=== PATIENT | female | born 1985 | race Two or more races ===

== ENCOUNTER 2020-10-01 23:47 | Emergency (ER) | payer SELFPAY ==
[~2020-10-01] VITALS: Ht 165.1 cm; Wt 63.5 kg
[2020-10-01 23:47] VITALS: BP 107/67
== END 2020-10-02 00:59 | disposition left against medical advice (07) ==
LOC: ER 23:50
DX: R10.9 Unspecified abdominal pain (principal); Z53.21 Procedure and treatment not carried out due to patient leaving prior to being seen by health care provider

== ENCOUNTER 2023-05-07 21:55 | Inpatient (IN) | payer MEDICAID ==
[~2023-05-07] VITALS: Ht 165.1 cm; Wt 85.0 kg
[2023-05-07] MEDS ORDERED: MORPHINE SULFATE 4 MG/ML SYR/VIAL IM ONE (22:15)
[2023-05-07 22:34] LABS: Urine Epithelial Cast None Seen /hpf (<5)
[2023-05-07 22:44] LABS: Alanine Aminotransferase 15 U/L (7-40); Alkaline Phosphatase 72 U/L (46-116); Anion Gap 7 (5-15); Aspartate Aminotransferase 12 U/L (13-40); BUN/Creatinine Ratio 8.4 (10.0-20.0); Blood Urea Nitrogen 7 mg/dL (9-23); Carbon Dioxide 23 mmol/L (20-30); Chloride 109 mmol/L (98-107); Glucose 96 mg/dL (74-106); Lipase 31 U/L (12-53); Potassium 3.9 mmol/L (3.5-5.1); Sodium 139 mmol/L (136-145)
[2023-05-07 22:45] LABS: Albumin 4.5 g/dL (3.2-4.8); Bilirubin, Total 0.5 mg/dL (0.2-1.0); Total Protein 7.6 g/dL (5.7-8.2)
[2023-05-07 22:49] LABS: Urine Bacteria NONE SEEN /hpf (None Seen); Urine Blood 3+ /uL (Negative); Urine Clarity Clear (Clear); Urine Color Colorless (Yellow); Urine Protein, UAD Negative (Negative); Urine Specific Gravity 1.008 (1.001-1.035); Urine Urobilinogen Normal (Negative); Urine WBC 7 /hpf (0 - 5)
[2023-05-07 23:38] LABS: Basophils # (auto) 0 10 ^3/uL (0-0.2); Basophils % (auto) 0.4 % (0.0-2.0); Eosinophils # (auto) 0.1 10 ^3/uL (0-0.8); Eosinophils % (auto) 0.6 % (0.0-7.0); Hemoglobin 7.9 g/dL (12.2-16.2); Lymphocytes # (auto) 1.7 10 ^3/uL (0.4-5.4); Mean Corpuscular Volume 61.3 fL (80.0-100.0); Monocytes # (auto) 0.7 10 ^3/uL (0-1.3)
[2023-05-07 23:39] LABS: Hematocrit 27.5 % (36.0-46.0); Lymphocytes % (auto) 15.6 % (10.0-50.0); Mean Corpuscular Hemoglobin 17.6 pg (28.0-32.0); Mean Corpuscular Hgb Conc. 28.6 g/dL (32.0-36.0); Neutrophils # (auto) 8.5 10 ^3/uL (1.6-8.6); Neutrophils % (auto) 77.4 % (37.0-80.0); Red Blood Cells 4.49 10^6/uL (4.0-5.20); Red Cell Distribution Width 18.9 % (11.8-14.3)
[2023-05-07] MEDS ORDERED: ONDANSETRON HCL 4 MG/2 ML VIAL IV ONE (23:45)
[2023-05-07] MEDS ORDERED: MORPHINE SULFATE 4 MG/ML SYR/VIAL IV ONE (23:45)
[2023-05-07 23:52] VITALS: PULSE 113; RESP 20; O2SAT 99
[2023-05-08 00:03] LABS: Platelet Estimate Adequate
[2023-05-08 00:04] LABS: Hypochromia Marked; Ovalocytes FEW
[2023-05-08] MEDS ORDERED: MORPHINE SULFATE 4 MG/ML SYR/VIAL IV ONE (00:45)
[2023-05-08] MEDS ORDERED: MORPHINE SULFATE INJ 2 MG/ml SYRG IV PRN (05:00)
[2023-05-08] MEDS ORDERED: ONDANSETRON HCL 4 MG/2 ML VIAL IV PRN (05:00)
[2023-05-08] MEDS ORDERED: ACETAMINOPHEN 325 MG TAB PO PRN (05:00)
[2023-05-08 05:53] LABS: Hemoglobin 7.8 g/dL (12.2-16.2)
[2023-05-08 05:58] LABS: % Iron Saturation 5.6 % (15-50)
[2023-05-08] MEDS: cefTRIAXone 1GM/50ML D5W 50 ML IV SCH (06:14)
[2023-05-08] MEDS: HYDROcodone-ACET 5/325MG TAB PO PRN ×2 (10:31→19:02)
[2023-05-08] MEDS ORDERED: PANTOPRAZOLE 40 MG/10 ML VIAL INJ IV ONE (13:45)
[2023-05-08] MEDS: metroNIDAZOLE 500MG/100ML 100 ML IV SCH ×2 (14:16→21:38)
[2023-05-08] MEDS ORDERED: diphenhdrAMINE HCL 50 MG/1 ML VL ONE (16:39)
[2023-05-08] MEDS ORDERED: LIDOCAINE VISCOUS 2% 15ML UD ONE (16:39)
[2023-05-08] MEDS ORDERED: SODIUM CHLORIDE LOCK 10 ML ONE (16:39)
[2023-05-08] MEDS ORDERED: MIDAZOLAM HCL 5 MG/ML-1ML VIAL ONE (16:39)
[2023-05-08] MEDS ORDERED: fentaNYL CITRATE 100 MCG/2 ML VL ONE (16:40)
[2023-05-08 17:05] VITALS: O2SAT 96
[2023-05-08 17:17] VITALS: O2SAT 99
[2023-05-08] MEDS: SUCRALFATE 1 GM/10 ML ORAL SUSP PO SCH (21:36)
[2023-05-08 22:00] VITALS: BP 106/58; PULSE 86; RESP 19; TEMP 98.5; O2SAT 100
[2023-05-09] MEDS: HYDROcodone-ACET 5/325MG TAB PO PRN ×3 (04:27→14:58)
[2023-05-09] MEDS: metroNIDAZOLE 500MG/100ML 100 ML IV SCH ×2 (05:59→14:00)
[2023-05-09] MEDS: PANTOPRAZOLE 40 MG/10 ML VIAL INJ IV SCH ×2 (06:09→17:00)
[2023-05-09] MEDS: SUCRALFATE 1 GM/10 ML ORAL SUSP PO SCH ×3 (06:09→17:00)
[2023-05-09 06:36] LABS: Basophils # (auto) 0 10 ^3/uL (0-0.2); Eosinophils # (auto) 0.1 10 ^3/uL (0-0.8); Hemoglobin 7.3 g/dL (12.2-16.2); Lymphocytes # (auto) 1.5 10 ^3/uL (0.4-5.4); Mean Corpuscular Hemoglobin 17.4 pg (28.0-32.0); Mean Corpuscular Hgb Conc. 28.7 g/dL (32.0-36.0); Mean Corpuscular Volume 60.7 fL (80.0-100.0); Monocytes # (auto) 0.5 10 ^3/uL (0-1.3); Neutrophils # (auto) 2.6 10 ^3/uL (1.6-8.6); Red Blood Cells 4.18 10^6/uL (4.0-5.20)
[2023-05-09 06:38] LABS: Basophils % (auto) 0.9 % (0.0-2.0); Eosinophils % (auto) 2.7 % (0.0-7.0); Hematocrit 25.3 % (36.0-46.0); Lymphocytes % (auto) 31.8 % (10.0-50.0); Monocytes % (auto) 10.7 % (0.0-12.0); Neutrophils % (auto) 53.9 % (37.0-80.0); Nucleated Red Blood Cells % 0.1 %; White Blood Cell 4.8 10^3/uL (4.4-10.8)
[2023-05-09 06:52] LABS: Alanine Aminotransferase 15 U/L (7-40); Alkaline Phosphatase 69 U/L (46-116); Anion Gap 7 (5-15); BUN/Creatinine Ratio 8.1 (10.0-20.0); Blood Urea Nitrogen 6 mg/dL (9-23); Carbon Dioxide 23 mmol/L (20-30); Chloride 110 mmol/L (98-107); Glucose 86 mg/dL (74-106); Sodium 140 mmol/L (136-145)
[2023-05-09 06:53] LABS: Aspartate Aminotransferase 13 U/L (13-40); Bilirubin, Total 0.4 mg/dL (0.2-1.0); Total Protein 6.7 g/dL (5.7-8.2)
[2023-05-09 08:00] VITALS: BP 96/60; PULSE 74; RESP 18; TEMP 98.4; O2SAT 98
[2023-05-09 08:35] VITALS: BP 93/51; PULSE 74; RESP 16; TEMP 98; O2SAT 97
[2023-05-09] MEDS ORDERED: PANTOPRAZOLE 40 MG/10 ML VIAL INJ IV SCH (10:00)
[2023-05-09] MEDS: cefTRIAXone 1GM/50ML D5W 50 ML IV SCH (10:26)
[2023-05-09] MEDS ORDERED: SUCR1TAB22 OR (11:24)
[2023-05-09] MEDS ORDERED: PANT40T PO (11:24)
[2023-05-09] MEDS ORDERED: LEVO500T91 PO (11:26)
[2023-05-09 12:35] VITALS: BP 96/60; PULSE 74; RESP 18; TEMP 98.4; O2SAT 98
[2023-05-09 16:35] VITALS: BP 100/53; PULSE 87; RESP 16; TEMP 98.4; O2SAT 98
[2023-05-09 17:42] VITALS: BP 100/53; PULSE 87; RESP 16; TEMP 98.4; O2SAT 98
== END 2023-05-09 18:41 | disposition home or self-care (01) | DRG 392 ==
LOC: ER 21:55 → OVERFLOW 05-08 04:53 → WEST WING 05-08 18:02
PROVIDERS: ADMIT Nurse Practitioner; ATTEND Family Medicine
PROC: 0DB68ZX Excision of Stomach, Via Natural or Artificial Opening Endoscopic, Diagnostic (ICD-10-PCS; 2023-05-08)
PROC: 0DB98ZX Excision of Duodenum, Via Natural or Artificial Opening Endoscopic, Diagnostic (ICD-10-PCS; principal; 2023-05-08 17:05)
DX: K29.00 Acute gastritis without bleeding (principal); N39.0 Urinary tract infection, site not specified; D64.9 Anemia, unspecified; D72.829 Elevated white blood cell count, unspecified; K44.9 Diaphragmatic hernia without obstruction or gangrene; K20.90 Esophagitis, unspecified without bleeding; Z90.49 Acquired absence of other specified parts of digestive tract
CPT/HCPCS: 36415; 71045; 74176; 80053; 81001; 83540; 83550; 83690; 84702; 85014; 85018; 85025; 86850; 86900; 86901; 96365; 96372; 96375; C9113; G0378; J2250; J3490